=== PATIENT | female | born 1995 | race Two or more races ===

== ENCOUNTER 2025-04-28 19:28 | Emergency (ER) | payer OTHER ==
[~2025-04-28] VITALS: Ht 167.6 cm; Wt 95.3 kg
[2025-04-28] MEDS ORDERED: CEFTRIAXONE SODIUM 1,000 MG VIAL IM ONE (20:15)
[2025-04-28] MEDS ORDERED: KETOROLAC TROMETHAMINE 60 MG VIAL IM ONE (20:15)
[2025-04-28] MEDS ORDERED: CETIRIZINE HCL 5 MG/5 ML ML PO ONE (20:15)
[2025-04-28 23:16] LABS: BASO % 0.3 % (0.1-1.2); EOS # 0.00 (0.04-0.54); EOS % 0.0 % (0.7-7.0); LYMPH # 0.88 (1.18-3.74); LYMPH % 15.1 % (19.3-53.1); MEAN PLATELET VOLUME 11.60 fl (9.4-12.4); MONO # 0.41 (0.24-0.82); MONO % 7.0 % (4.7-12.5); NEUT # 4.51 (1.56-6.13); NEUT % 77.4 % (34.0-71.1); RED CELL DISTRIBUTION WIDTH 15.3 % (11.6-14.4)
[2025-04-29 00:28] LABS: COVID-19 AG NEGATIVE (NEGATIVE)
[2025-04-29] MEDS ORDERED: OSEL75CA PO (00:33)
[2025-04-29] MEDS ORDERED: PEPCID AC20 MG PO (00:33)
== END 2025-04-29 00:51 | disposition home or self-care (01) ==
LOC: ER 19:28
PROVIDERS: General Practice
DX: J10.1 Influenza due to other identified influenza virus with other respiratory manifestations (principal); R50.9 Fever, unspecified; Z20.822 Contact with and (suspected) exposure to COVID-19